=== PATIENT | male | born 1940 | race Hispanic/Latino ===

== ENCOUNTER 2017-08-05 14:24 | Emergency (ER) | payer OTHER ==
[2017-08-05] MEDS ORDERED: HYDROCODONE/ACETAMINOPHEN 5/325 MG TAB ONE (15:38)
== END 2017-08-05 16:32 | disposition home or self-care (01) ==
LOC: EDH 14:24
DX: M13.872 Other specified arthritis, left ankle and foot (principal); E78.5 Hyperlipidemia, unspecified; E07.9 Disorder of thyroid, unspecified; Z88.0 Allergy status to penicillin
CPT/HCPCS: 73630

== ENCOUNTER 2018-07-10 13:21 | Emergency (ER) | payer OTHER, MEDICARE ==
[2018-07-10] MEDS ORDERED: ACETAMINOPHEN 325 MG TAB ONE (13:52)
[2018-07-10 14:01] LABS: APPEARANCE,URINE TURBID (CLEAR); BILIRUBIN,URINE MODERATE (NEGATIVE); COLOR,URINE BROWN (YELLOW); GLUCOSE, URINE (UA) NEGATIVE (NEGATIVE); KETONES,URINE 5 mg/dL (NEGATIVE); LEUKOCYTE ESTERASE ,URINE MODERATE (NEGATIVE); NITRATE,URINE POSITIVE (NEGATIVE); OCCULT BLOOD,URINE LARGE (NEGATIVE); PH,URINE 6.5 (5.0-8.0); PROTEIN,URINE >=300 (NEGATIVE)
[2018-07-10 14:07] LABS: BACTERIA,URINE Few /HPF (None Seen); RBC,URINE TNTC /HPF (0-1); SQUAMOUS EPITHELIAL CELL,UR Rare /HPF (0-2); WBC,URINE 26-50 /HPF (0-1)
[2018-07-10] MEDS ORDERED: LIDOCAINE HCL-MPF 1% 2ML VIAL ONE (14:12)
[2018-07-10] MEDS ORDERED: CEFTRIAXONE SODIUM 1 GM ONE (14:12)
[2018-07-10] MEDS ORDERED: PHENAZOPYRIDINE HCL 200 MG TABLET ONE (14:12)
== END 2018-07-10 14:43 | disposition home or self-care (01) ==
LOC: EDH 13:21
DX: N30.01 Acute cystitis with hematuria (principal); R50.9 Fever, unspecified; E78.5 Hyperlipidemia, unspecified; E07.9 Disorder of thyroid, unspecified; Z98.890 Other specified postprocedural states; Z88.0 Allergy status to penicillin; Z72.0 Tobacco use
CPT/HCPCS: 81001; 96372; 99283; J0696; J3490

== ENCOUNTER 2019-03-13 21:16 | Observation (INO) | payer OTHER, MEDICARE ==
[~2019-03-13] VITALS: Ht 190.5 cm; Wt 101.7 kg
[2019-03-13] MEDS ORDERED: ACETAMINOPHEN EXTRA STRENGTH 500 MG TABLET ONE (22:12)
[2019-03-13] MEDS ORDERED: LEVOFLOXACIN 750 MG/D5W 150 ML 150 ML ONE (22:12)
[2019-03-13] MEDS ORDERED: SODIUM CHLORIDE 0.9% 1000ML 3,000 ML IV ONE (22:13)
[2019-03-13 22:16] LABS: BASOPHILS % (AUTO) 0.2 % (0.0-5.0); HEMATOCRIT 48.8 % (42-54); LYMPHOCYTES % (AUTO) 2.4 % (21.0-51.0); MEAN CORPUSCULAR HEMOGLOBIN 30.4 pg (27.0-33.0); MEAN CORPUSCULAR HGB CONC 33.7 g/dL (32.0-36.0); MEAN CORPUSCULAR VOLUME 90.4 fL (79-99); MONOCYTES % (AUTO) 2.3 % (3.0-13.0); NEUTROPHILS % (AUTO) 95.1 % (40.0-77.0); PLATELET COUNT (AUTO) 177 K/uL (130-400); RED CELL DISTRIBUTION WIDTH 14.9 % (11.0-15.5); WHITE BLOOD COUNT (AUTO) 15.6 K/uL (4.8-10.8)
[2019-03-13 22:27] LABS: INR 1.17 (0.85-1.15); PARTIAL THROMBOPLASTIN TIME 27.8 SEC (26.3-35.5); PROTHROMBIN TIME 12.2 SEC (9.6-11.6)
[2019-03-13 22:33] LABS: APPEARANCE,URINE Clear (CLEAR); BILIRUBIN,URINE Small (NEGATIVE); COLOR,URINE Dark Yellow (YELLOW); GLUCOSE, URINE (UA) Negative (NEGATIVE); KETONES,URINE 15 mg/dL (NEGATIVE); LEUKOCYTE ESTERASE ,URINE Small (NEGATIVE); NITRATE,URINE Negative (NEGATIVE); OCCULT BLOOD,URINE Large (NEGATIVE); PH,URINE 6.5 (5.0-8.0); PROTEIN,URINE POS 1+ mg/dL (NEGATIVE)
[2019-03-13 22:37] LABS: CARBON DIOXIDE 25 mmol/L (21-32); CHLORIDE 99 mmol/L (101-111); CREATININE 1.3 mg/dL (0.5-1.5); GLOMERULAR FILTR. RATE CALC 57 mL/min (>60); GLUCOSE,RANDOM 120 mg/dL (70-105); POTASSIUM 4.6 mmol/L (3.5-5.1); SODIUM SERUM 134 mmol/L (136-145); UREA NITROGEN, BLOOD 16 mg/dL (7-18)
[2019-03-13 22:48] LABS: BACTERIA,URINE Moderate /HPF (None Seen); MUCUS,URINE Moderate LPF (None Seen); SQUAMOUS EPITHELIAL CELL,UR Few /HPF (0-2)
[2019-03-13 22:49] LABS: ALANINE AMINOTRANSFERASE 17 U/L (12-78); ALBUMIN 3.2 g/dL (3.5-5.0); ASPARTATE AMINOTRANSFERASE 34 U/L (10-37); BILIRUBIN,TOTAL 1.3 mg/dL (0.2-1.0); CREATINE KINASE, TOTAL 199 U/L (21-232); MYOGLOBIN 166 ng/mL (10-92); TOTAL PROTEIN, SERUM 7.5 g/dL (6.0-8.3); TROPONIN I < 0.04 ng/mL (0.00-0.06)
[2019-03-14] VITALS (7 sets, daily range): BP systolic 108–154; BP diastolic 61–81
[2019-03-14] MEDS ORDERED: IBUPROFEN 600 MG TABLET ONE (00:53)
[2019-03-14] MEDS ORDERED: CEFTRIAXONE SODIUM 1 GM IVP SCH (01:15)
[2019-03-14] MEDS ORDERED: ACETAMINOPHEN 325 MG TAB PO PRN (01:15)
[2019-03-14] MEDS ORDERED: SULF1TAB42 PO (01:30)
[2019-03-14] MEDS ORDERED: LEVO125T11 PO (01:30)
[2019-03-14] MEDS: SODIUM CHLORIDE 0.9% 1000ML 1,000 ML IV SCH ×2 (01:56→13:01)
[2019-03-14 05:19] LABS: EOSINOPHILS % (AUTO) 1.1 % (0.0-8.0); HEMATOCRIT 41.3 % (42-54); LYMPHOCYTES % (AUTO) 17.4 % (21.0-51.0); MEAN CORPUSCULAR HEMOGLOBIN 30.1 pg (27.0-33.0); MEAN CORPUSCULAR HGB CONC 33.3 g/dL (32.0-36.0); MEAN CORPUSCULAR VOLUME 90.4 fL (79-99); MONOCYTES % (AUTO) 8.7 % (3.0-13.0); NEUTROPHILS % (AUTO) 72.8 % (40.0-77.0); PLATELET COUNT (AUTO) 180 K/uL (130-400); RED BLOOD CELL COUNT(AUTO) 4.58 MIL/uL (4.50-6.20); RED CELL DISTRIBUTION WIDTH 14.8 % (11.0-15.5); WHITE BLOOD COUNT (AUTO) 13.2 K/uL (4.8-10.8)
[2019-03-14 05:44] LABS: ALBUMIN 2.4 g/dL (3.5-5.0); BILIRUBIN,TOTAL 1.1 mg/dL (0.2-1.0); CREATININE 1.3 mg/dL (0.5-1.5); POTASSIUM 3.6 mmol/L (3.5-5.1); TOTAL PROTEIN, SERUM 5.8 g/dL (6.0-8.3)
[2019-03-14] MEDS: CEFTRIAXONE SODIUM 1 GM IVP SCH (08:58)
[2019-03-14] MEDS: PANTOPRAZOLE SODIUM 40 MG TABLET.DR PO SCH (08:59)
--- NOTE | 2019-03-14 10:00 | NUR ---
INITIAL MET W PT ALONE AAO X3, STATES LIVES WITH DAUGHTER MATEO IN HIS HOUSE, MATEO WILL PORVIDE [facility]PORT HOME PT STATES INDP OF ADLS, NO DME, DIRVES, ACTIVE, HOME SAFE AND ACCESSIBLE, DCP HOME CHART REVIWED, NOTE MADE OF PREVIOSU BAD UTI EARLIER THIS YEAR, NO CULTURE ASKED RN TO ASK MD FOR RENAL ULTRA SOUND, PT WITH FEVER, HIGH PROCALCITONON, BLOOD IN URINE NOTES JUN 2018 AND NOW. WAITING ON ANSWER FORM Addendum: 03/14/19 at 1850 by AURELIA CABELLO RN CM Amended: Links added.
[2019-03-14] MEDS ORDERED: LACTULOSE 20 GM/30 ML UDCUP PO PRN (20:15)
[2019-03-15] MEDS: SODIUM CHLORIDE 0.9% 1000ML 1,000 ML IV SCH (00:47)
[2019-03-15 03:30] VITALS: BP 130/85
[2019-03-15 05:38] LABS: BASOPHILS % (AUTO) 0.2 % (0.0-5.0); EOSINOPHILS % (AUTO) 0.3 % (0.0-8.0); HEMATOCRIT 44.4 % (42-54); LYMPHOCYTES % (AUTO) 7.9 % (21.0-51.0); MEAN CORPUSCULAR HEMOGLOBIN 30.2 pg (27.0-33.0); MEAN CORPUSCULAR HGB CONC 33.3 g/dL (32.0-36.0); MEAN CORPUSCULAR VOLUME 90.5 fL (79-99); MONOCYTES % (AUTO) 6.4 % (3.0-13.0); NEUTROPHILS % (AUTO) 85.2 % (40.0-77.0); NUCLEATED RED BLOOD CELLS 0.2 % (0.0-0.19); PLATELET COUNT (AUTO) 155 K/uL (130-400); RED CELL DISTRIBUTION WIDTH 15.3 % (11.0-15.5); WHITE BLOOD COUNT (AUTO) 7.8 K/uL (4.8-10.8)
[2019-03-15 05:56] LABS: ALBUMIN 2.5 g/dL (3.5-5.0); BILIRUBIN,TOTAL 0.5 mg/dL (0.2-1.0); CREATININE 1.2 mg/dL (0.5-1.5); POTASSIUM 3.8 mmol/L (3.5-5.1); TOTAL PROTEIN, SERUM 6.2 g/dL (6.0-8.3)
[2019-03-15 07:29] VITALS: BP 128/79
[2019-03-15] MEDS: PANTOPRAZOLE SODIUM 40 MG TABLET.DR PO SCH (09:00)
[2019-03-15] MEDS: CEFTRIAXONE SODIUM 1 GM IVP SCH (10:11)
[2019-03-15 10:50] VITALS: BP 138/78
--- NOTE | 2019-03-15 14:30 | NUR ---
DR. CITLALLI SERRANO HERE TO SEE PATIENT. INFORMED THAT PATIENT HAD A PRESCRIPTION OF AN ANTIBIOTIC THAT PATIENT HAD FILLED PRIOR TO HOSPITALIZATION. MD SPOKE WITH PATIENT AND PATIENT VERIFIED HE FILLED PRESCRIPTION. DR. LENNON TOLD PATIENT TO TAKE ANTIBIOTIC PRESCRIBED.
--- NOTE | 2019-03-15 15:00 | NUR ---
DISCHARGE' DISCHARGE TEACHING PROVIDED TO PATIENT. PATIENT INFORMED TO SCHEDULE F/U WITH DR. LENNON IN 3 DAYS. PROVIDED UTI TEACHING CARE AT HOME. PATIENT VERBALIZED UNDERSTANDING OF DISCHARGE TEACHING. REMOVED 20G IV FROM LEFT FA, CATHETER TIP INTACT. PATIENT TO BE DRIVEN HOME BY FAMILY.
== END 2019-03-15 15:04 | disposition home or self-care (01) ==
LOC: EDH 21:16 → EDHIP 23:50 → 4DH 03-14 01:00 → 4AH 03-14 23:50
PROVIDERS: ADMIT Family Medicine; ATTEND Family Medicine
DX: R50.9 Fever, unspecified (principal); I10 Essential (primary) hypertension; E78.5 Hyperlipidemia, unspecified; R00.0 Tachycardia, unspecified; I44.4 Left anterior fascicular block; F17.200 Nicotine dependence, unspecified, uncomplicated; Z88.0 Allergy status to penicillin
CPT/HCPCS: 36415 ×3; 71045; 80053 ×3; 81001; 82550; 83605; 83874; 84145; 84484; 85025 ×3; 85610; 85730; 87040 ×2; 87088; 93005; 96374; 96376; 99284; G0378 ×39; J0696 ×2; J1956; J7030

== ENCOUNTER 2020-05-06 18:50 | Emergency (ER) | payer OTHER, MEDICARE ==
[~2020-05-06 18:50] MED LIST: LEVO125T11 PO; SULF1TAB42 PO
[2020-05-06] MEDS ORDERED: ACETAMINOPHEN EXTRA STRENGTH 500 MG TABLET ONE (20:19)
[2020-05-06 20:51] LABS: BASOPHILS % (AUTO) 0.1 % (0.0-5.0); HEMATOCRIT 47.6 % (42-54); LYMPHOCYTES % (AUTO) 5.1 % (21.0-51.0); MEAN CORPUSCULAR HEMOGLOBIN 29.2 pg (27.0-33.0); MEAN CORPUSCULAR HGB CONC 33.2 g/dL (32.0-36.0); MEAN CORPUSCULAR VOLUME 87.8 fL (79-99); MONOCYTES % (AUTO) 4.5 % (3.0-13.0); NEUTROPHILS % (AUTO) 89.7 % (40.0-77.0); PLATELET COUNT (AUTO) 223 K/uL (130-400); RED BLOOD CELL COUNT(AUTO) 5.42 MIL/uL (4.50-6.20); RED CELL DISTRIBUTION WIDTH 14.6 % (11.0-15.5); WHITE BLOOD COUNT (AUTO) 7.9 K/uL (4.8-10.8)
[2020-05-06 20:52] LABS: APPEARANCE,URINE Clear (CLEAR); BILIRUBIN,URINE Negative (NEGATIVE); COLOR,URINE Yellow (YELLOW); GLUCOSE, URINE (UA) Negative (NEGATIVE); KETONES,URINE Trace mg/dL (NEGATIVE); LEUKOCYTE ESTERASE ,URINE Negative (NEGATIVE); NITRATE,URINE Negative (NEGATIVE); OCCULT BLOOD,URINE Large (NEGATIVE); PROTEIN,URINE Trace mg/dL (NEGATIVE)
[2020-05-06 21:02] LABS: BACTERIA,URINE Rare /HPF (None Seen); MUCUS,URINE Rare LPF (None Seen); SQUAMOUS EPITHELIAL CELL,UR None Seen /HPF (0-2); WBC,URINE 0-1 /HPF (0-1)
[2020-05-06 21:07] LABS: CREATININE 1.3 mg/dL (0.5-1.5); POTASSIUM 4.1 mmol/L (3.5-5.1)
[2020-05-06 21:11] LABS: ALBUMIN 3.4 g/dL (3.5-5.0); BILIRUBIN,TOTAL 0.5 mg/dL (0.2-1.0); TOTAL PROTEIN, SERUM 7.9 g/dL (6.0-8.3)
[2020-05-06] MEDS ORDERED: CEFTRIAXONE SODIUM 1 GM ONE (21:44)
[2020-05-06] MEDS ORDERED: SODIUM CHLORIDE 0.9% 50 ML IV ONE (21:46)
== END 2020-05-07 00:34 | disposition home or self-care (01) ==
LOC: EDH 18:50
DX: U07.1 COVID-19 (principal); E78.5 Hyperlipidemia, unspecified; Z88.0 Allergy status to penicillin
CPT/HCPCS: 36415; 71045; 80053; 81001; 85025; 87040 ×2; 87426; 96365; 99284; J0696

== ENCOUNTER 2020-09-29 13:15 | Emergency (ER) | payer OTHER, MEDICARE | END 2020-09-29 15:07 | disposition home or self-care (01) | LOC: EDH 13:15 | DX: S40.011A Contusion of right shoulder, initial encounter (principal); E78.5 Hyperlipidemia, unspecified; Z88.0 Allergy status to penicillin; E07.9 Disorder of thyroid, unspecified; V49.59XA Passenger injured in collision with other motor vehicles in traffic accident, initial encounter; Y93.89 Activity, other specified; Y92.89 Other specified places as the place of occurrence of the external cause; Y99.8 Other external cause status ==

== ENCOUNTER → 2023-08-13 | Outpatient (CLI) | payer OTHER, MEDICARE | END | disposition home or self-care (01) | LOC: SHCH 15:14 | PROVIDERS: ATTEND Internal Medicine | DX: R94.31 Abnormal electrocardiogram [ECG] [EKG] (principal) | CPT/HCPCS: 93306 ==

== ENCOUNTER 2025-05-08 12:56 | Emergency (ER) | payer MEDICARE, OTHER ==
[~2025-05-08] VITALS: Ht 190.5 cm; Wt 95.3 kg
--- NOTE | 2025-05-08 13:07 | ERN ---
General Chief Complaint: Insect Bite Stated Complaint: BEE STING Time Seen by MD: 13:00 History of Present Illness Initial Comments 85-year-old male who presents for multiple bee stings. Patient was stung about 6 times to the face into the left shoulder. He has a little bit of the edema around both eyes. No airway compromise. No GI symptoms. No lethargy dyspnea or other complaints. Allergies: Coded Allergies: Penicillins (Unverified Allergy, Unknown, 03/14/19) Home Meds Active Scripts Prednisone (Prednisone) 20 Mg Tablet, 1 TAB PO BID for 5 Days, #10 TAB 0 Refills Prov:MARGARITO LANDON 05/08/25 Reported Medications Sulfamethoxazole/Trimethoprim (Bactrim Ds Tablet) 1 Each Tablet, 1 TAB PO BID for uti for 7 Days, TAB 03/14/19 Levothyroxine Sodium (Levothyroxine Sodium) 125 Mcg Tablet, 125 MCG PO ACBKFST, TAB 03/14/19 Past Medical History Past Medical History: Other Past Surgical History: Other ROS Dictation CONSTITUTIONAL: No chills, no fever, no weakness, no diaphoresis, no malaise. HEAD/FACE: No signs of trauma. EENT: No eye pain, no blurred vision, no tearing, no double vision, no ear pain, no ear discharge, no nose pain, no nasal congestion, no throat pain, no throat swelling, no mouth pain. RESPIRATORY: No cough, no orthopnea, no SOB, no stridor, no wheezing. CARDIOVASCULAR: No chest pain, no edema, no palpitations, no syncope. GASTROINTESTINAL/ABDOMINAL: No abdominal pain, no constipation, no diarrhea, no nausea, no vomiting. GENITOURINARY: No abnormal discharge, no dysuria, no frequent urination, no hematuria. No complaints of pain in the genitals. MUSCULOSKELETAL: No back pain, no gout, no joint pain, no joint swelling, no muscle pain, no muscle stiffness, no neck pain. INTEGUMENTARY: No change in color, no change in hair/nails, no dryness, no lesion, no lumps, no rash. NEUROLOGICAL/PSYCH: No anxiety, not depressed, no emotional problem, no headache, no numbness, no pre-existing deficit, no history of seizures, no tremors, no weakness. HEMATOLOGIC/LYMPHATIC: Not anemic, no history of blood clots, no apparent bleeding, no bruising, glands not swollen. All Systems Negative, Except as Noted. Physical Exam Physical Exam Dictation VITAL SIGNS: Reviewed. GENERAL APPEARANCE: Alert, oriented x3, no acute distress, obese. HEAD AND FACE: Non-traumatic. Some swelling around the eyes EYES: PERRL, pink conjunctivas, eyelid no trauma, anterior chamber clear. EARS: Pinnas intact and no signs of trauma or erythema. Ear canals clear and no discharge. TMs no erythema. NOSE: No discharge, no bleeding. OROPHARYNX: Mouth normal, teeth no caries, tongue pink. Pharynx clear, no erythema. Tonsils no exudates, no abscesses noted. Mucous membrane moist. NECK: Supple, non-tender, no thyromegaly, no masses, no JVD, no bruits. BREAST: Deferred. CHEST: No tenderness, no crepitus, no paradoxical movement, no retractions. LUNGS: Clear, well-ventilated, symmetric, no rales, no wheezing, no rhonchi, no stridor, good breath sounds bilaterally. HEART: Regular rate, regular rhythm, no murmur, no gallops. VASCULAR: No peripheral edema. ABDOMEN: Soft, positive bowel sounds, nondistended, no guarding, nontender, no rebound, no masses no hepatomegaly, no splenomegaly, no Castro's sign, no gerhard ias. RECTAL: Deferred. GENITAL: Deferred. NEUROLOGICAL: Normal speech, gross motor function intact, gross sensory function intact. MUSCULOSKELETAL: Neck nontender, full range of motion, back nontender, full range of motion. EXTREMITIES: Nontender, full range of motion. SKIN: Color pink, dry, no turgor, no rash, no lacerations, no abrasions, no contusions. LYMPHATICS: Deferred. MDM CC: Bee stings Historian: Patient Comorbidities: Advanced age, diabetes, hypertension Limitations: None Differential diagnosis: Local allergic reaction versus anaphylaxis Vital signs are stable Clinical exam shows some swelling to the bilateral eyes no airway compromise clear lungs no hives throughout the chest or trunk. He is nontoxic in appe arance. Patient received IV Solu-Medrol and Benadryl in the ED. Patient was observed for about an hour in the ER. Swelling went down. No signs of toxicity. I did offer further observation stay here in the ER, with the patient reports he feels much better and would like to go home. Prescriptions: Prednisone, recommend OTC Benadryl. Discharge PCP follow up. ED Course Orders Procedure Category Date Status Time Methylprednisolone PHA 05/08/25 Complete Succ 125mg (Solu-Medr 13:30 Diphenhydramine Hcl PHA 05/08/25 Complete (Benadryl Inj) 13:30 Methylprednisolone PHA 05/08/25 Complete Succ 125mg (Solu-Medr 13:05 Diphenhydramine Hcl PHA 05/08/25 Complete (Benadryl Inj) 13:05 Current Medications Medications (Trade) Dose Ordered Sig/Jad Route PRN Reason Start Time Stop Time Status Last Admin Dose Admin Diphenhydramine HCl (BENAdryl INJ) 25 mg ONCE ONCE IV 05/08/25 13:30 05/08/25 13:31 DC 05/08/25 13:11 Diphenhydramine HCl (BENAdryl INJ) 50 mg STK-MED ONCE .ROUTE 05/08/25 13:05 05/08/25 13:06 DC Methylprednisolone Sodium Succinate (Solu-medROL 125MG) 125 mg ONCE ONCE IVP 05/08/25 13:30 05/08/25 13:31 DC 05/08/25 13:12 Methylprednisolone Sodium Succinate (Solu-medROL 125MG) 125 mg STK-MED ONCE .ROUTE 05/08/25 13:05 05/08/25 13:05 DC Vital Signs Date Time Temp Pulse Resp B/P (MAP) Pulse Ox O2 Delivery O2 Flow Rate FiO2 05/08/25 14:25 98.8 89 18 144/81 100 Room Air* 0 21 05/08/25 12:57 99.7 110 20 155/87 99 Room Air 0 DX & DISP Disposition: Discharge Departure Impression: Primary Impression: Bee sting allergy Condition: Stable Scripts Prednisone (Prednisone) 20 Mg Tablet 1 TAB PO BID for 5 Days, #10 TAB 0 Refills Prov: BARBIMARGARITO DO 05/08/25 Additional Instructions: You had multiple bee stings here today with swelling. I have prescribed prednisone, which is an anti-inflammatory steroid. Take this twice per day for the next five days as needed for swelling. With the swelling goes away, you did not need to complete this medication. You can take ansk-xen-nffcyft Benadryl or cetirizine as needed for itching symptoms. Please return to the emergency department if you have any concerns. Referrals: LEISA LENNON MD (PCP) MARGARITO LANDON DO May 08, 2025 13:07
[2025-05-08] MEDS ORDERED: PRED20TA3 PO (14:16)
[2025-05-08 14:25] VITALS: BP 144/81; PULSE 89; RESP 18; TEMP 98.7; O2SAT 100
== END 2025-05-08 14:26 | disposition home or self-care (01) ==
LOC: EDH 12:56
DX: T63.441A Toxic effect of venom of bees, accidental (unintentional), initial encounter (principal); E11.9 Type 2 diabetes mellitus without complications; I10 Essential (primary) hypertension; Z88.0 Allergy status to penicillin; Z79.52 Long term (current) use of systemic steroids; Y92.89 Other specified places as the place of occurrence of the external cause
CPT/HCPCS: 99284; 96374; 96375; J2919; J1200